=== PATIENT | female | born 1960 | race African-American/Black ===

== ENCOUNTER 2019-07-25 14:00 | Outpatient (RCR) | payer OTHER, SELFPAY ==
--- NOTE | 2019-05-22 15:28 | PTOPEVAL ---
PHYSICAL THERAPY EVALUATION 05-22-19 Physical Therapy evaluation was completed today for the diagnosis of B LE lymphedema. Plan of treatment has been scheduled for 3x/week for 6 weeks. Thank you for referring Mrs. Richardson to [facility]. Please review, sign, date and return this plan of care REECE. I agree with and certify that the following plan of care is medically necessary. Referring Physician Date Attending Provider: Dr. Pankaj Richardson *PT Outpatient Evaluation Start: 05/22/19 14:09 Document 05/22/19 14:10 YARIEL (Rec: 05/22/19 15:21 YARIEL [email or web address]) Therapy Assessment Status Assessment Status Assessment Status Evaluation Outpatient Past Medical History Neurological History Hx Other Neurological Disorders Yes: born with spina bifida/ non ambulatory Cardiovascular History Hx Hypertension Yes: on meds, has been elevated lately-takes at home Respiratory History Hx Asthma Yes Hx Other Respiratory Disorders Yes: allergies, Gastrointestinal History Hx Other Gastrointestinal Disorders Yes: colostomy on R side Genitourinary History Hx Bladder Surgery Yes: artificial bladder since 17 yr old Hx Other Genitourinary Disorders Yes: occassional kidney infections Musculoskeletal History Hx Amputation Yes: R big toe amputation;L foot skin graft due wound& infection Hx Other Musculoskeletal Disorders Yes: back surgery- spinal cord compression & fluid leaking ' 93 Hematological History Hx Hematological Disorders No Significant History Endocrine History Hx Endocrine Disorders No Significant History HEENT History Hx Other HEENT Disorders Yes: wear hearing aides; glasses Pain History Has Past Pain Affected Your Daily Life Yes Ineffective Methods of Pain Control take tramadol--chronic pain from swelling in legs Other History Hx Other Surgeries Yes: hysterectomy; B hip surgery as child Evaluation Information Problem Diagnosis B LE lymphedema Onset Feb 2019 Previous Treatments Previous Treatments For This Problem no lymphedema treatment Prior Level of Function Home Setting Home Type Mobile Home Environmental Barriers Stairs, 2-4 Living Situation With Adult Child,With Friend Mobility Assistive Devices (Used Last 3 Wheelchair, Manual Months) Bathing Equipment Tub Seat With Back Comments Additional Prior Level of Function son and boy friend assist pt-- Comments home tasks, cooking, cleaning,
--- NOTE | 2019-06-06 12:57 | PCPTNOTE ---
Pt did not arrive for her appointment at 12:30 today, Called patient to remind her of her appointment on Tuesday. Patient stated she did not know her insurance had been approved yet. Explained that she had been approved and that we would see her on Tuesday at 12:30.
--- NOTE | 2019-06-08 13:02 | PCPTNOTE ---
Patient did not show up for scheduled appointment this date. Called pt and left message that she mised hr appointment and to please call us back.
--- NOTE | 2019-06-22 13:38 | PCPTNOTE ---
Patient did not show up for scheduled appointment this date . Called pt and left message.
--- NOTE | 2019-07-06 10:44 | PCPTNOTE ---
pt called and canceled due to bad weather;
--- NOTE | 2019-07-13 13:27 | PTOPEVAL ---
PHYSICAL THERAPY RE-EVALUATION AND UPDATED PLAN OF CARE 07-13-2019 Karen has received 13 Physical Therapy sessions, from May 22 to today, for the diagnosis of B LE lymphdedma. Compared to the initial evaluation: The circumferential measurement, up from bottom of her foot to 56 cm, R leg has decreased by 11.1 cm and L leg has decreased by 33.8 cm; the dorsum of her L foot has decreased in size and decreased fibrosis; education has been provided for lymphedema care and management. She is to order the compression garment and foot piece for the L LE, then treatment will be initiated for the R leg. She continues to use her wheelchair without any leg rests when coming to the dept. It has been discussed with her that she needs support to her LE's, to avoid the dependent position. Treatment is scheduled to continue 3x/week for 5 weeks, and the goals are established for 5 weeks. Due to insurance authorizations, a reevaluation will be performed in 2 weeks for an update on her status to the insurance company and request for additional therapy. Thank you for referring Mrs. Mayers to [facility]. Please review, sign, date and return this plan of care REECE. I agree with and certify that the following plan of care is medically necessary. Referring Physician Date Attending Provider: Dr. Pankaj Richardson *PT Outpatient Re-Evaluation Document 07/13/19 12:34 YARIEL (Rec: 07/13/19 13:22 YARIEL [email or web address]) Subjective Information Karen states: likes the Query Text:As Reported By Patient/ progress of her leg, can Family finally see her toes; and can move legs better Pain Assessment Self Report Self Report Pain Level 0 Pain Score Pain Score 0: Self Report Lower Extremity Muscle Strength Testing General Lower Extremity Strength Gross Lower Extremity Strength supine SLR R 20 /L 20; heel slides R 21/ L reps 21 reps Lymphedema Evaluation Skin Inspection Location Left Lower Extremity,Right Lower Extremity Skin Observations Absence of Leg Hair,Dorsum Foot Swelling,Hyperkeratosis, Obesity,Peau d' [place],Swollen , Squared off Toes Palpation Findings Warm Skin Temperature Tissue Texture Firm Lymphedema Stage II Skin Inspection Comment 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
--- NOTE | 2019-07-25 14:51 | PTOPEVAL ---
PHYSICAL THERAPY RE EVALUATION AND UPDATED PLAN OF CARE 07-24-2019 Karen has received 18 Physical Therapy sessions, from May 22 to today, for the diagnosis of B LE lymphedema. Compared to the reevaluation: with the circumferential measurements, her R LE has increased by 12.6 cm and her L LE increased by 13.5 cm-the lower leg is stabilized and the thigh has increased; strength has improved with both legs. She continues to come into the department with a wheel chair that does not have elevating legs, so legs are in dependent position. The L lower leg has stabilized and she has ordered a compression garment. Once it is received, the compression wraps can be initiated on the R leg. Thank you for referring Mrs. Richardson to [facility]. Please review, sign, date and return this plan of care REECE. I agree with and certify that the following plan of care is medically necessary. Referring Physician Date Attending Provider: Dr. Pankaj Richardson *PT Outpatient Re-Evaluation Document 07/25/19 14:00 YARIEL (Rec: 07/25/19 14:38 YARIEL [email or web address]) Therapy Assessment Status Assessment Status Assessment Status Re-evaluation Subjective Information Karen reports: is amazed by Query Text:As Reported By Patient/ the size of her L leg and how Family small it is; has ordered her compression garment and has been doing self massage; wants to continue therapy for her R leg; Pain Assessment Pain Scale Pain Scale Used Numeric (1 - 10) Self Report Pain Assessment Right Leg(s) Reported Pain Level 0 Additional Pain Comments no pain in legs Pain Score Pain Score 0: Self Report Lower Extremity Muscle Strength Testing General Lower Extremity Strength Gross Lower Extremity Strength supine SLR R 23/ L 24 reps; Lymphedema Evaluation Skin Inspection Location Left Lower Extremity,Right Lower Extremity Skin Observations Dorsum Foot Swelling, Hyperpigmentation,Hypoplastic, Concave Toes,Shiny, Dry, Pale Skin Lymphedema Stage II Skin Inspection Comment L LE: dry flaking skin; dorsum of foot swelling and toes swollen; lower leg without thickness/firmness of tissue; R LE: lower leg and dorsum foot edema- thick and firm tissue; edemtous toes; B thigh tissue soft; LE Circumferential Measurement Right LE Lymphedema Side Right Metatarsal Heads (cm) 32 Figure 8 of Ankle (cm) 57 8 cm From Bottom of Foot (cm) 28 12 cm From Bottom of Foot (cm) 41.8 16 cm
--- NOTE | 2019-08-23 12:04 | PCPTNOTE ---
Pt's charges and care provided documented on July 26 reflect charges for July 25.
--- NOTE | 2019-09-20 13:20 | PCPTNOTE ---
PHYSICAL THERAPY DISCHARGE 09-20-2019 Attending Provider: Dr. Pankaj Richardson Patient:Karen Mayers Date of :1960 Ms. Mayers has not returned for any further treatments since the reevaluation on 07/25/2019, therefore she will be discharged from therapy at this time. Refer to that report for her status at the last session. Thank you for referring Ms. Mayers to [facility]. Please review, sign, date and return this discharge summary REECE. I have been updated about the patient's current status and I agree with discharge from the above service at this time. Referring Physician Date
== END 2019-07-25 23:59 | disposition home or self-care (01) ==
LOC: ANHPT 14:00
DX: I89.0 Lymphedema, not elsewhere classified (principal)
CPT/HCPCS: 29581; 97140; 97161